=== PATIENT | female | born 1970 | race Caucasian/White ===

== ENCOUNTER → 2020-09-04 13:25 | Outpatient (CLI) | payer BC, SELFPAY ==
--- NOTE | ~2020-09-04 | MM_ITS ---
EXAMINATION: MM screening [facility] BI w radha HISTORY: Screening TECHNIQUE: Craniocaudal and mediolateral oblique 3-D tomosynthesis images were obtained and synthetic 2-D images were generated. CAD analysis was submitted and interpreted. COMPARISON: Comparison to multiple prior studies sequentially, with oldest reviewed study dated 03/25. BREAST PARENCHYMAL COMPOSITION: Breast composed of scattered areas of fibroglandular density. FINDINGS: There is no evidence of suspicious mass, calcification, or architectural distortion to sugg est malignancy in either breast. There has been no suspicious interval change. IMPRESSION: 1. No mammographic evidence of malignancy. 2. Recommend routine screening mammography in one year. BI-RADS Category 1: Negative Reviewed, dictated and finalized at location A.
== END ==
PROVIDERS: PCP Internal Medicine Geriatric Medicine; Visit Provider Nurse Practitioner Obstetrics & Gynecology
DX: Z12.31 Encounter for screening mammogram for malignant neoplasm of breast (principal)
CPT/HCPCS: 77063; 77067

== ENCOUNTER 2021-04-29 15:49 | Outpatient (CLI) | payer BC, SELFPAY ==
--- NOTE | ~2021-04-29 | US_ITS ---
EXAMINATION: US thyroid EXAM DATE: 04/29/2021 16:27 INDICATION: Fatigue, decreased libido. TECHNIQUE: Multiple grayscale and Doppler images of the thyroid were obtained (by a technologist who performed the scan) and subsequently reviewed. Individual nodules and recommendations may be reporte d in accordance with TI-RADS system as designated by the 2017 ACR White Paper TI-RADS committee. The re is no prior study for comparison. FINDINGS: The right there are lobe measures 4.3 x 1.7 x 1.6 cm, the left measuring 4.2 x 1.5 x 1.6 cm. Isthmus measures 4 mm. These dimensions are within normal size limits. Mildly diffusely heterogeneous thyroid echotexture with expected amount of vascularity. No focal nodule identified. IMPRESSION: 1. Unremarkable thyroid ultrasound exam. . Reviewed, dictated and finalized at location A. ER DEVELOPER
== END 2021-04-29 15:50 | disposition home or self-care (01) ==
PROVIDERS: PCP Internal Medicine Geriatric Medicine
DX: N95.1 Menopausal and female climacteric states (principal); R53.83 Other fatigue; R68.82 Decreased libido; F52.31 Female orgasmic disorder; F06.31 Mood disorder due to known physiological condition with depressive features; G47.09 Other insomnia; M15.8 Other polyosteoarthritis; E06.3 Autoimmune thyroiditis
CPT/HCPCS: 76536